=== PATIENT | female | born 1955 | race Two or more races ===

== ENCOUNTER 2020-11-05 19:33 | Emergency (ER) | payer SELFPAY ==
[~2020-11-05] VITALS: Ht 162.6 cm; Wt 104.7 kg
[2020-11-05] MEDS ORDERED: catapres (19:53)
[2020-11-05] MEDS ORDERED: aspirin (19:54)
[2020-11-05] MEDS ORDERED: HYDR25TA MT (19:56)
[2020-11-05] MEDS ORDERED: ACETAMINOPHEN WITH CODEINE 300/30MG TABLET PO ONE (22:45)
[2020-11-06] MEDS ORDERED: ACET-2708 MT (00:15)
[2020-11-06 00:24] VITALS: BP 130/87
== END 2020-11-06 00:25 | disposition home or self-care (01) ==
LOC: ER 19:33 → EDBD 19:33 → ER 11-06 00:25
DX: M79.18 Myalgia, other site (principal); I10 Essential (primary) hypertension; Z90.710 Acquired absence of both cervix and uterus
CPT/HCPCS: 93971; 99284